=== PATIENT | male | born 1965 | race Caucasian/White ===

== ENCOUNTER 2020-05-13 07:50 | Day surgery (SDC) | payer OTHER ==
[~2020-05-13] VITALS: Ht 167.6 cm; Wt 81.2 kg
[~2020-05-13 07:50] MED LIST: HYDROXYZINE HCL50 MG PO; HYZAAR 50-12.51 EACH PO; SEREVENT DISKU1 PUFF INH; SEROQUEL50 MG PO; VENTOLIN HFA18 GM INH
--- NOTE | 2020-05-13 11:09 | NUR ---
05/13/20 1109 Holly Mo 1059- PT ARRIVES TO PACU AWAKE BUT IS NEEDING REMINDERS ABOUT WHERE HE IS. PT ALSO TRYING TO REACH UP ABOVE HIS HEAD. EDUCATED PT TO LEAVE HIS ARMS DOWN BY HIS SIDE AND THAT EVERYTHING IS OKAY. PT IS ABLE TO DO THIS. RESP EVEN AND UNLABORED. OXYGEN SAT HIGH 90'S TO 100% ON 12L VIA MASK. 1102- OXYGEN TITRATED DOWN TO 6L VIA MASK. 1107- OXYGEN TITRATED OFF. 1109- DR. MAHAN AT THE BEDSIDE TO TALK WITH THE PT.
--- NOTE | 2020-05-13 11:31 | NUR ---
PT ARRIVES TO DS RM 4 FROM PACU AWAKE AND ALERT. PT DENIES ANY NAUSEA AND REQUESTS BLACK COFFEE FOR "CAFFEINE HEADACHE." PT RATES PAIN 4/10 IN RIGHT UPPER ARM. PT ASKS ABOUT LUNCH, THIS RN WILL ORDER SANDWICH FROM DIETARY. DC CRITERIA EXPLAINED TO PT, CALL [facility] WITHIN REACH.
--- NOTE | 2020-05-13 11:45 | NUR ---
[id number]: PT TOLERATES 100% OF LUNCH WITH NO PROBLEMS OF NAUSEA. PT UP TO BATHROOM WITH RN ASSIST, STEADY GAIT. PT ABLE TO VOID QS WITH NO PROBLEMS. PT BACK TO TO GET DRESSED. MEDICAL TRANSPORT NOTIFIED FOR SAFE RIDE HOME. DC INSTRUCTIONS GIVEN, ALL QUESTIONS ADDRESSED. PAIN PRESCRIPTION IN DC FOLDER WITH PT. PT DC FROM DS RM 4 VIA WC TO MEDICAL TRANSPORT TO HOME.
[2020-05-13] MEDS ORDERED: NORCO 10-325 T1 EACH PO (12:51)
--- NOTE | 2020-05-18 10:55 | OR ---
[facility] [address] [place], [place] [address] Signed DATE OF OPERATION: 05/13/2020 SURGEON: Raj Mahan MD PREOPERATIVE DIAGNOSIS: Right upper extremity subcutaneous mass (10 x 12 cm) POSTOPERATIVE DIAGNOSIS: Right upper extremity subcutaneous lipomatous mass (10 x 12 cm). PROCEDURE: Excision of right upper extremity subcutaneous mass. ESTIMATED BLOOD LOSS: None. 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 He said prior the last 12 years he has had a large mass over the biceps area on his right arm coming up toward his shoulder. It is at least 10 cm if not 15 cm in width in length. He said it is pretty difficult. He only has to wear his straps over shoulders and so forth while at work. He was hoping he could have that excised. I reviewed with Mandy the nature of the incision required to remove that. It is quite sizable enough we decided do it over in the operating room. I explained to him the nature of that surgery along with its risks including, but not limited to bleeding, infection, scarring, change in contour of the skin as well as recurrent subcutaneous masses in the same or other locations. He had expressed understanding and wished to proceed. DESCRIPTION OF PROCEDURE: I had met with Mandy in our preop area. It was quite easy for both of us to identify the mass and marked it appropriately. After this, he was taken in the operating room and placed in the supine position under general LMA anesthesia. His right arm was placed out on an armboard and was prepped and draped in the usual sterile fashion. He was given preoperative antibiotics along with subcutaneous heparin. SCDs were utilized. He had been prepped and draped in the usual sterile fashion. A radial incision was made out over the mass and carried down around the mass mostly bluntly and with judicious cautery dividing the septae attaching it to the overlying skin. It has the appearance of a large lipoma. It is about 10 x 12 cm. A couple of pictures were taken for photodocumentation. We injected a small amount of local anesthetic into areolar Electronically Signed By: RAJ MAHAN MD 05/17/20 0734 Electronically Signed By: RAJ MAHAN MD 05/18/20 1204 PATIENT NAME: MANDY BRAXTON OPERATIVE REPORT DATE OF : 67 REPORT #: [id number] PHYSICIAN: RAJ MAHAN MD PCP: DARIUS SHIPLEY PA-C REPORT IS CONFIDENTIAL AND NOT TO BE RELEASED WITHOUT AUTHORIZATION [facility] [address] [place], [place] [address] Signed tissue overlying the area of the muscle. The wound was irrigated and suctioned out until clear. The dermis was reapproximated with multiple 5-0 subcuticular Monocryl sutures. The skin edges were reapproximated with a running 6-0 fast absorbing plain gut suture. Dry gauze was applied along with a 4-inch Kerlix roll followed by a 4-inch Lakhwinder wrap. After this, Mandy was awakened from his anesthesia, extubated in the OR, and taken to the recovery room in stable condition. Raj Mahan MD ALB/MODL /[id number] cc: CRISTIN Hart MD Copies: RAJ MAHAN MD ~ Electronically Signed By: RAJ MAHAN MD 05/17/20 0734 Electronically Signed By: RAJ MAHAN MD 05/18/20 1204 PATIENT NAME: MANDY BRAXTON OPERATIVE REPORT DATE OF : 67 REPORT #: [id number] PHYSICIAN: RAJ MAHAN MD PCP: DARIUS SHIPLEY PA-C REPORT IS CONFIDENTIAL AND NOT TO BE RELEASED WITHOUT AUTHORIZATION
--- NOTE | 2020-05-18 15:12 | PATH ---
[facility] [address] [place], [place] [address] Signed SPECIMEN(S): A RIGHT UPPER EXTREMITY SPECIMEN SOURCE: A. RIGHT UPPER EXTREMITY CLINICAL HISTORY: Excise subcutaneous mass right upper extremity. Lipoma right upper arm. FINAL PATHOLOGIC DIAGNOSIS: Soft tissue, right upper extremity, excision: - Lobules of mature fibroadipose tissue, consistent with lipoma. NAL:caw:C2NR MICROSCOPIC EXAMINATION: Histologic sections of all submitted blocks are examined by light microscopy. These findings, together with the gross examination, support the pathologic diagnosis. GROSS DESCRIPTION: The specimen, labeled "RejiMandy schultz," and designated on the requisition "subcutaneous mass, right upper extremity," is received in formalin and consists of a 179 gram portion of yellow-murcia adipose tissue that is 11.6 x 10.1 x 4.3 cm. The specimen is partially surfaced by a transparent membranous tissue. The tissue is inked blue and serially sectioned to reveal a bright yellow homogeneous cut surface. Hockey Player sections are submitted in cassette (A1-A3). FB (under the direct supervision of a pathologist) The Gross Description was prepared using a voice recognition system. The report was reviewed for accuracy; however, sound-alike word errors, addition and/or deletions may occur. If there is any question about this report, please contact Client Services. PERFORMING LABORATORY: The technical component was performed by [facility], [address] [place] [id number] ([employer] Architect: Amparo Lopez MD; CLIA# [id number]). [facility] [address] [address] (CLIA# [id number]). Diagnostician: Crystal Kowalski MD Pathologist PATIENT NAME: MANDY BRAXTON PATHOLOGY DATE OF : 67 REPORT #: [id number] PHYSICIAN: PETER PATHOLOGY PCP: DARIUS SHIPLEY PA-C REPORT IS CONFIDENTIAL AND NOT TO BE RELEASED WITHOUT AUTHORIZATION [address] [address] Signed Electronically Signed 05/17/2020 Copies: ~ PATIENT NAME: MANDY BRAXTON PATHOLOGY DATE OF : 67 REPORT #: [id number] PHYSICIAN: PETER PATHOLOGY PCP: DARIUS SHIPLEY PA-C REPORT IS CONFIDENTIAL AND NOT TO BE RELEASED WITHOUT AUTHORIZATION
== END 2020-05-13 13:05 | disposition home or self-care (01) ==
LOC: DS 07:50 → OPS 07:50 → DS 11:30 → OPS 11:30
PROVIDERS: ATTEND Colon & Rectal Surgery
PROC: 0JBD0ZZ Excision of Right Upper Arm Subcutaneous Tissue and Fascia, Open Approach (ICD-10-PCS; principal; 2020-05-13 10:15)
DX: D17.21 Benign lipomatous neoplasm of skin and subcutaneous tissue of right arm (principal); I10 Essential (primary) hypertension; J44.9 Chronic obstructive pulmonary disease, unspecified; F32.9 Major depressive disorder, single episode, unspecified; F41.9 Anxiety disorder, unspecified; F17.210 Nicotine dependence, cigarettes, uncomplicated; Z79.899 Other long term (current) drug therapy
CPT/HCPCS: 00400; 88304; J0690; J1100; J1644; J1885; J2001; J2405; J2704; J3010; J7121

== ENCOUNTER 2020-05-15 20:38 | Emergency (ER) | payer OTHER ==
[~2020-05-15] VITALS: Ht 167.6 cm; Wt 78.9 kg
[~2020-05-15 20:38] MED LIST changes: +NORCO 10-325 T1 EACH PO
== END 2020-05-15 21:49 | disposition home or self-care (01) ==
LOC: ED 20:38
DX: L76.32 Postprocedural hematoma of skin and subcutaneous tissue following other procedure (principal); I10 Essential (primary) hypertension; F17.200 Nicotine dependence, unspecified, uncomplicated; Z79.899 Other long term (current) drug therapy
CPT/HCPCS: 10160; 99283-25

== ENCOUNTER 2021-03-14 05:40 | Day surgery (SDC) | payer OTHER ==
[~2021-03-14] VITALS: Ht 167.6 cm; Wt 79.5 kg
[~2021-03-14 05:40] MED LIST changes: +CLARITIN10 MG PO; +CYMBALTA30 MG PO; +SEREVENT DISKU50 MCG IH; +TRAZODONE HCL50 MG
--- NOTE | 2021-03-14 07:31 | NUR ---
REPORT GIVEN TO LEEANNE HOG SAWYER. PRE OP ABX GIVEN. PT TO OR.
--- NOTE | 2021-03-14 08:27 | NUR ---
03/14/21 0854 Evi Anderson 0801-PATIENT ARRIVED TO PACU ON 6L MASK RR EVEN NONAROUSABLE. ORAL AIRWAY IN PLACE. SR. IVF INFUSING. PACKING TO NOSE DRY AND INTACT WITH GAUZE AND TAPE.
--- NOTE | 2021-03-14 09:08 | NUR ---
PT ARRIVED FROM PACU. REPORT RECEIVED FROM BELINDA CASTRO. PT ALERT AND OREINTED. PT DENIES NAUSEA BUT REPORTS 6/10 ACHING PAIN IN SINUSES AND NOSE. SEE MAR FOR MEDICAITON GIVEN. PT TOELRATING PO JELLO, PUDDING AND WATER. GAUZE MUSTASH DRESSING TO NOSE SHOWS SMALL AMOUNT OF RED DRAINAGE TO RIGTH NOSTRIL, OTHEWISE C/D/I. PT TEXTING ON PHONE. NO ADDITIONAL REQUESTS OR COMPLAINTS. BED RAILS UP. CALL LIGHT WITHIN REACH. CONTINIOUS PULSE OX IN PLACE.
[2021-03-14] MEDS ORDERED: CEPHALEXIN500 M1 PO (09:30)
[2021-03-14] MEDS ORDERED: HYDROCODON-ACE1 EA10 PO (09:31)
--- NOTE | 2021-03-14 09:47 | NUR ---
VITALS AND ASSESSMENT DUE. PT REPORTS HE NEEDS TO USE THE RESTROOM. STAND BY ASSIST UP TO RESTROOM, PT STEADY ON FEET. PT VOIDS 375ML CLEAR YELLOW URINE WITH OUT ISSUE. STAND BY ASSIST BACK TO ROOM. PT DRESSES SELF, NO ASSISTANCE NEEDED. PT REPORTS HE WOULD LIKE TO GO HOME, HOWEVER PT CONTINUEST TO REPORT 5/10 PAIN IN NASAL AREA. ADDITIONAL PAIN PILL GIVEN (SEE MAR) TO TITRATE UP TO FULL DOSE. VITAL SIGNS STABLE. SMALL AMOUNT OF RED DRAINAGE NOTED ON GAUZE MUSTACH DRESSING. PT REQUESTS DRESSING BE CHANGED. PT DEMONSTRATES UNDERSTANDING OF HOW TO CHANGE GAUZE MUSTACH DRESSING WITH ASSISTANCE FROM THIS RN. DRESSING CHANGE SUPPLIES (GAUZE AND TAPE) PROVIDED FOR PT TO TAKE HOME. PT CONTACTS HIS RIDE TO TAKE HIME HOME. DISCHARGE INSTRUCTIONS REVEIWED WITH PT. PT VERBALIZES UNDERSTANDING OF INSTRUCTIONS, FOLLOW UP, MEDICATIONS, AND WHEN TO CALL THE DOCTOR. WAITING TO SEE IF PAIN IMPROVES WITH MEDICATION. PT DENIES ADDITIONAL REQUESTS OR COMPLAINTS. CALL LIGHT WITHIN REACH. BED RAILS UP.
--- NOTE | 2021-03-14 10:00 | NUR ---
PT CALL LIGHT ON. PT STATES HE IS READY FOR DISCHARGE. PAIN NOW AT 4/10 WHICH PT STATES IS WELL CONTROLLED. PT DENIES NEED FOR ADDITIONAL PAIN MEDICATION. PT TRANSFERS SELF TO WHEELCHAIR AND IS WHEELED FROM DAY SURGERY WITH ALL BELONGINGS. PT STATES HE HAS NO ADDITIONAL REQUESTS OR CONCERNS. GAUZE DRESSING REMAINS C/D/I.
--- NOTE | 2021-03-14 13:30 | OR ---
[facility] [address] [place], [place] [address] Signed DATE OF OPERATION: 03/14/2021 SURGEON: Miguel Angel Lynch MD PREOPERATIVE DIAGNOSIS: Septal deformity. POSTOPERATIVE DIAGNOSIS: Septal deformity. PROCEDURE: Septoplasty. ANESTHESIA: General LMA; PRINCIPAL BIOINFORMATICS SPECIALIST, Farzana. PREOPERATIVE HISTORY: Mr. Braxton is a 55-year-old man, who has a significant septal deformity. This was worsened or caused by trauma to the nose several weeks ago. He is having nasal obstruction, unresponsive to appropriate medications. He is taken to the operating room for the above-mentioned procedures. OPERATIVE PROCEDURE AND FINDINGS: After informed consent, the patient was taken to the operating room, placed in the supine position where general LMA anesthesia was induced. The patient and procedure were verified. The patient was repositioned. He received preoperative intravenous Ancef and intranasal oxymetazoline. Headlight speculum exam of the nasal cavity showed a significant septal deformity, nearly completely obstructive on the right side. There was a large spur inferiorly on the left, partially obstructive. 1% lidocaine with epi was injected on each side of the septum submucoperichondrially, a total of 7 mL was used. The left hemitransfixion incision was made. Submucoperichondrial flap elevated on the left side. Incision was made through septal cartilage to the right side and a submucoperichondrial flap elevated on this side. A small tear was created on the right, none on the left. All deviated septal bone and cartilage were then removed with Nickie. Septum was medialized. Airway improved in this manner. The incision was closed with 4-0 interrupted chromic. Packing was placed in equal amount, trimmed, coated with Neosporin, 1 piece each side, tied anteriorly over a pad. The pharynx was suctioned, clear of blood secretions. The patient was then awakened, extubated, transported to recovery room in good condition. Electronically Signed By: MIGUEL ANGEL LYNCH MD 03/14/21 1330 PATIENT NAME: MANDY BRAXTON OPERATIVE REPORT DATE OF : 67 REPORT #: [id number] PHYSICIAN: MIGUEL ANGEL LYNCH MD PCP: DARIUS SHIPLEY PA-C REPORT IS CONFIDENTIAL AND NOT TO BE RELEASED WITHOUT AUTHORIZATION [address] [place], [place] [address] Signed COMPLICATIONS: No complications. BLOOD LOSS: Minimal. SPECIMEN: No specimen. DRAINS: No drains. PACKING: One piece of Merocel each nostril. Miguel Angel Lynch MD GC/MODL /[id number] Copies: ~ Electronically Signed By: MIGULE ANGEL LYNCH MD 03/14/21 1330 PATIENT NAME: MANDY BRAXTON OPERATIVE REPORT DATE OF : 67 REPORT #: [id number] PHYSICIAN: MIGUEL ANGEL LYNCH MD PCP: DARIUS SHIPLEY PA-C REPORT IS CONFIDENTIAL AND NOT TO BE RELEASED WITHOUT AUTHORIZATION
== END 2021-03-14 10:00 | disposition home or self-care (01) ==
LOC: DS 05:40 → OPS 05:40 → DS 06:45 → OPS 06:45
PROVIDERS: ATTEND Otolaryngology
PROC: 09BM8ZZ Excision of Nasal Septum, Via Natural or Artificial Opening Endoscopic (ICD-10-PCS; principal; 2021-03-14 06:45)
DX: J34.2 Deviated nasal septum (principal); I10 Essential (primary) hypertension; J44.9 Chronic obstructive pulmonary disease, unspecified; J32.9 Chronic sinusitis, unspecified; K21.9 Gastro-esophageal reflux disease without esophagitis; F17.210 Nicotine dependence, cigarettes, uncomplicated
CPT/HCPCS: 00160; J0690; J1100; J2001; J3010; J7121

== ENCOUNTER 2021-04-11 06:41 | Day surgery (SDC) | payer OTHER ==
[~2021-04-11 06:41] MED LIST changes: +CEPHALEXIN500 M1 PO; +HYDROCODON-ACE1 EA10 PO
[2021-04-11] MEDS ORDERED: TYLENOL325 MG PO (07:13)
[2021-04-11] MEDS ORDERED: EXCEDRIN EXTRA1 EAC1 PO (07:13)
--- NOTE | 2021-04-11 09:01 | NUR ---
04/11/21 0900 Nayana Contreras 0850 PATIENT ARRIVES TO PACU UNRESPONSIVE TO PAIN, ORAL AIRWAY IN PLACE, REQUIRES RN TO HOLD JAW THRUST. RESP EVEN AND UNLABORED, WITH SUPPORT. MASK AT 6 LITERS. 0900 PATIENT CONTINUES TO BE UNRESONSIVE TO PAIN. ORAL AIRWAY IN PLACE, NO LONGER REQUIRES JAW THRUST. RESP EVEN AND UNLABORED, MASK CONTINUED AT 6 LITERS. SATS 100%.
--- NOTE | 2021-04-11 09:35 | NUR ---
PT ARRIVES TO DS RM 5 FROM PACU AWAKE. PT DENIES ANY NAUSEA AND IS PROVIDED COFFEE AND PUDDING. PT DOES NOT APPEAR TO BE PAINFUL AND WHEN ASKED ABOUT PAIN STATES, "I AM NOT SURE YET." DC CRITERIA EXPLAINED TO PT, PT ACKNOWLEDGES BY SHAKING HEAD UP AND DOWN. CALL LIGHT WITHIN REACH, ENC TO USE WITH ANY NEEDS.
[2021-04-11] MEDS ORDERED: HYDROCODON-ACE1 EA10 PO (10:12)
--- NOTE | 2021-04-11 10:17 | NUR ---
1005: PT USES CALL LIGHT TO NOTIFY RN OF URGE TO VOID. PT ASSISTED TO SIDE OF BED, DENIES ANY NAUSEA OR LIGHT HEADEDNESS. PT AMBULATES TO BATHROOM WITH RN ASSIST, STEADY GAIT. PT ABLE TO VOID APPROX 350 MLS CONCENTRATED YELLOW URINE WITH NO PROBLEMS. PT BACK TO DS RM 5 TO GET DRESSED.
--- NOTE | 2021-04-11 10:31 | NUR ---
RATES PAIN 5/10 STATES THIS IS ACCEPTABLE AND HAS BEEN MEDICATED
--- NOTE | 2021-04-11 11:54 | OR ---
[facility] [address] [place], [place] [address] Signed DATE OF OPERATION: 04/11/2021 SURGEON: Miguel Angel Lynch MD PREOPERATIVE DIAGNOSIS: Septal deformity. POSTOPERATIVE DIAGNOSIS: Septal deformity. PROCEDURE: Septoplasty. ANESTHESIA: General LMA, Aj GRAFF. PREOPERATIVE HISTORY: Mandy is a 55-year-old man who suffered nasal trauma several months ago. He had septoplasty a month and a half ago by myself, which corrected most of the deformity, but there is a persistent right-sided anterior septal hump that needs revision and he is taken to the operating room for the above-mentioned procedures. OPERATIVE PROCEDURE AND FINDINGS: After informed consent, the patient was taken to the operating room, placed in the supine position where general LMA anesthesia was induced. The patient and procedure were verified. The patient received preoperative intravenous Ancef and intranasal oxymetazoline. Headlight speculum exam of the nasal cavity showed the left side to be clear. Right side, there was a bulge of the septum anteriorly. The caudal portion of the septal cartilage was deviated to the left side, but not obstructive. The septal mucosa was injected with 1% lidocaine with epi. Incision was then made on the right side just a cm posterior to the caudal edge and submucoperichondrial flap elevated on the right. Incision was made through septal cartilage just a few mm posterior to the mucosal incision and a submucoperichondrial flap elevated on the left. All deviated septal cartilage was then removed with Nickie. The airway was improved. Deformity minimal bleeding. The incision was closed with 4-0 interrupted chromic. A small piece of Merocel packing placed on the right side. The pharynx was suctioned clear of blood and secretions. The patient was then awakened, extubated, and transported to recovery room in good condition. No complications. BLOOD LOSS: Electronically Signed By: MIGUEL ANGEL LYNCH MD 04/11/21 1154 PATIENT NAME: MANDY BRAXTON OPERATIVE REPORT DATE OF : 67 REPORT #: [id number] PHYSICIAN: MIGUEL ANGEL LYNCH MD PCP: DARIUS SHIPLEY PA-C REPORT IS CONFIDENTIAL AND NOT TO BE RELEASED WITHOUT AUTHORIZATION [address], [place] [address] Signed Minimal. SPECIMEN: No specimen. DRAINS: No drains. PACKING: One piece of Merocel, right side. Miguel Angel Lynch MD GC/MODL /[id number] Copies: ~ Electronically Signed By: MIGUEL ANGEL LYNCH MD 04/11/21 1154 PATIENT NAME: MANDY BRAXTON OPERATIVE REPORT DATE OF : 67 REPORT #: [id number] PHYSICIAN: MIGUEL ANGEL LYNCH MD PCP: DARIUS SHIPLEY PA-C REPORT IS CONFIDENTIAL AND NOT TO BE RELEASED WITHOUT AUTHORIZATION
== END 2021-04-11 10:35 | disposition home or self-care (01) ==
LOC: DS 06:41 → OPS 06:41 → DS 08:45 → OPS 08:45
PROVIDERS: ATTEND Otolaryngology
PROC: 09BM0ZZ Excision of Nasal Septum, Open Approach (ICD-10-PCS; principal; 2021-04-11 08:00)
DX: J34.2 Deviated nasal septum (principal); I10 Essential (primary) hypertension; J44.9 Chronic obstructive pulmonary disease, unspecified; Z72.0 Tobacco use
CPT/HCPCS: 00160; J0690; J7121

== ENCOUNTER 2025-02-10 15:02 | Emergency (ER) | payer OTHER ==
[~2025-02-10] VITALS: Ht 167.6 cm; Wt 89.6 kg
[~2025-02-10 15:02] MED LIST changes: +EXCEDRIN EXTRA1 EAC1 PO; +TYLENOL325 MG PO
[2025-02-10] MEDS ORDERED: SPIRIVA RESPIMAT4 GM INH (15:27)
[2025-02-10] MEDS ORDERED: SODIUM CHLORIDE 0.9% 500 ML IV ONE (15:30)
[2025-02-10] MEDS ORDERED: GABAPENTIN300 MG PO (15:31)
[2025-02-10] MEDS ORDERED: QUETIAPINE FUM100 MG PO (15:31)
[2025-02-10] MEDS ORDERED: BRINTELLIX10 MG PO (15:31)
[2025-02-10] MEDS ORDERED: VRAYLAR1.5 MG PO (15:32)
[2025-02-10] MEDS ORDERED: FLUOXETINE HCL40 MG PO (15:32)
[2025-02-10] MEDS ORDERED: PRAZOSIN HCL5 MG (15:32)
[2025-02-10 15:38] LABS: BASOPHILS 0.7 % (0.2-1.2); EOSINOPHILS 0.5 % (0.8-7.0); HEMATOCRIT 41.4 % (40.1-51.0); HEMOGLOBIN 13.8 g/dL (13.7-17.5); LYMPHOCYTES 26.5 % (21.8-53.1); MCH 27.9 PG (25.7-32.2); MCHC 33.3 g/dL (32.3-36.5); MCV 83.8 fL (79.0-92.2); MONOCYTES 9.3 % (5.3-12.2); NEUTROPHILS 62.5 % (34.0-67.9); PLATELET COUNT 223 K/uL (163-337); RBC 4.94 M/uL (4.63-6.08)
[2025-02-10] MEDS ORDERED: ACETAMINOPHEN 325 MG TAB PO ONE (15:45)
[2025-02-10 15:59] LABS: ALBUMIN 3.7 g/dL (3.4-5.0); ALBUMIN/GLOBULIN RATIO 0.95 (1.1-2.4); ANION GAP 13.6 (7-21); BILIRUBIN, TOTAL 0.4 mg/dL (0.2-1.0); BUN/CREATININE RATIO 16.66 (6.0-28.6); CALCIUM 8.6 mg/dL (8.5-10.1); CREATININE, SERUM 1.02 mg/dL (0.70-1.30); POTASSIUM 3.6 mmol/L (3.5-5.1); PROTEIN, TOTAL 7.6 g/dL (6.4-8.2)
[2025-02-10 16:12] LABS: CORONAVIRUS COVID-19 AG NEGATIVE (NEGATIVE); INFLUENZA A AG NEGATIVE (NEGATIVE); INFLUENZA B AG NEGATIVE (NEGATIVE)
[2025-02-10 17:21] LABS: BILIRUBIN, URINE NEGATIVE (negative); BLOOD/HGB, URINE TRACE-L (Negative); KETONE, URINE NEGATIVE (Negative); LEUK ESTERASE, URINE NEGATIVE (negative); NITRITE, URINE NEGATIVE (negative)
[2025-02-10 17:26] LABS: BACTERIA, URINE NONE SEEN /hpf (negative); CASTS, URINE NONE SEEN \\lpf; COLLECTION TYPE, URINE CLEAN CATCH; CRYSTALS, URINE NONE SEEN (0-1+); EPITHELIAL CELLS, URINE NONE SEEN /lpf (0-1+); REFLEX CULTURE, URINE No (No); WHITE BLOOD CELLS, URINE 0-1 /HPF (0-5)
[2025-02-10] MEDS ORDERED: NAPROSYN500 MG PO (18:26)
[2025-02-10] MEDS ORDERED: ONDANSETRON ODT4 MG PO (18:26)
[2025-02-10 18:54] VITALS: BP 121/85
--- NOTE | 2025-02-11 13:54 | EKG ---
[facility] [address] [facility] [place] [address] Signed Normal sinus rhythm Incomplete right bundle branch block Borderline ECG When compared with ECG of 09-MAR-2021 10:04, Incomplete right bundle branch block is now present Confirmed by Suzan Gan MD ([id number]) on 02/11/2025 1:54:16 PM Electronically Signed By: SUZAN GAN MD 02/11/25 1354 PATIENT NAME: MANDY BRAXTON Electrocardiogram DATE OF : 67 PHYSICIAN: SUZAN GAN MD REPORT #: [id number] REPORT IS CONFIDENTIAL AND NOT TO BE RELEASED WITHOUT AUTHORIZATION
== END 2025-02-10 18:56 | disposition home or self-care (01) ==
LOC: ED 15:02
PROVIDERS: Emergency Medicine
DX: S20.211A Contusion of right front wall of thorax, initial encounter (principal); B34.9 Viral infection, unspecified; F17.200 Nicotine dependence, unspecified, uncomplicated; Z88.8 Allergy status to other drugs, medicaments and biological substances; Z79.899 Other long term (current) drug therapy; W19.XXXA Unspecified fall, initial encounter
CPT/HCPCS: 36415; 71046; 80053; 81001; 85025; 87502; 93005; 93010; 96360; 99285-25; A9270; J7040; U0002